=== PATIENT | female | born 1950 | race African-American/Black ===

== ENCOUNTER 2019-06-02 10:15 | Emergency (ER) | payer MEDICARE ==
--- NOTE | 2019-06-02 10:59 | ER Document Report ---
ED Medical Screen (RME) - General Chief Complaint: Altered Mental Status Stated Complaint: HEADACHE,LEFT HAND TINGLING Time Seen by Provider: 06/02/19 10:51 Primary Care Provider: CORNELL ALFONSO MD [Primary Care Provider] - Follow up as needed Mode of Arrival: Wheelchair Information source: Patient, Friend Notes: Patient presents emergency department with possible stroke. Reports last night around 5:00 PM she was cooking and she passed out. She is not sure how long she was out. She is not sure if she hit her head. She reports some right-sided neck muscular pain. She reports her hand is numb and tingling not cooperating with her. Patient speaking in clear voice smiling laughing no distress. Denies chest pain vomiting fever. Reports history of stroke in the past. Is not taking any type of anticoagulants I have greeted and performed a rapid initial assessment of this patient. A comprehensive ED assessment and evaluation of the patient, analysis of test results and completion of the medical decision making process will be conducted by additional ED providers. Dictation of this chart was performed using voice recognition software; therefo re, there may be some unintended grammatical errors. TRAVEL OUTSIDE OF THE [place] IN LAST 30 DAYS: No - Related Data Allergies/Adverse Reactions: No Known Allergies Allergy (Unverified 06/02/19 10:17) Past Medical History - Social History Frequency of alcohol use: None Drug Abuse: None Renal/ Medical History: Denies: Hx Peritoneal Dialysis Physical Exam - Vital signs Vitals: Temp Pulse Resp BP Pulse Ox 97.3 F 77 20 144/80 H 98 06/02/19 10:06/02/19 10:06/02/19 10:06/02/19 10:28 06/02/19 10:28 Course - Vital Signs Vital signs: Temp Pulse Resp BP Pulse Ox 97.3 F 77 20 144/80 H 98 06/02/19 10:06/02/19 10:06/02/19 10:06/02/19 10:28 06/02/19 10:28 Doctor's Discharge - Discharge Referrals: CORNELL ALFONSO MD [Primary Care Provider] - Follow up as needed
--- NOTE | 2019-06-02 11:28 | RADIOLOGY REPORT (SQ) ---
EXAM DESCRIPTION: CT HEAD WITHOUT COMPLETED DATE/TIME: 06/02/2019 11:12 am REASON FOR STUDY: syncope, left hand numb, diff moving COMPARISON: None. TECHNIQUE: Axial images acquired through the brain without intravenous contrast. Images reviewed wi th bone, brain and subdural windows. Additional sagittal and coronal reconstructions were generated. Images stored on PACS. All CT scanners at this facility use dose modulation, iterative reconstruction, and/or weight based d osing when appropriate to reduce radiation dose to as low as reasonably achievable (ALARA). [facility]: Dose Right [facility]: CareDose [facility]: Dose Right [facility]: Teradose 4D [facility]: [employer] RADIATION DOSE: CT Rad equipment meets quality standard of care and radiation dose reduction techniq ues were employed. CTDIvol: 53.2 mGy. DLP: 1044 mGy-cm. mGy. LIMITATIONS: None. FINDINGS: VENTRICLES: Prominent. CEREBRUM: No masses. No hemorrhage. No midline shift. Areas of low density in the white matter mos t likely due to chronic micro-vascular ischemic change. No evidence for acute infarction. CEREBELLUM: No masses. No hemorrhage. No alteration of density. No evidence for acute infarction. EXTRAAXIAL SPACES: Mild age-related involutional change. No fluid collections. No masses. ORBITS AND GLOBE: No intra- or extraconal masses. Normal contour of globe without masses. CALVARIUM: No fracture. PARANASAL SINUSES: No fluid or mucosal thickening. SOFT TISSUES: No mass or hematoma. OTHER: No other significant finding. IMPRESSION: MILD CHRONIC CHANGES OF ATROPHY AND MICROVASCULAR ISCHEMIA. NO ACUTE PROCESS. EVIDENCE OF ACUTE STROKE: NO. TECHNICAL DOCUMENTATION: JOB ID: [id number] Quality ID # 436: Final reports with documentation of one or more dose reduction techniques (e.g., Au tomated exposure control, adjustment of the mA and/or kV according to patient size, use of iterative reconstruction technique) 2010 [employer]- All Rights Reserved Reading location - IP/workstation name: [email or web address]
[2019-06-02 11:45] LABS: ABSOLUTE EOSINOPHILS # (AUTO) 0.1 10^3/uL (0.0-0.6); ABSOLUTE LYMPHOCYTES (AUTO) 1.6 10^3/uL (0.5-4.7); ABSOLUTE MONOCYTES (AUTO) 0.8 10^3/uL (0.1-1.4); ABSOLUTE NEUT (AUTO) 6.9 10^3/uL (1.7-8.2); BASOPHILS % (AUTO) 0.5 % (0-2); EOSINOPHILS % (AUTO) 1.5 % (0-6); HEMATOCRIT 42.7 % (36.0-47.0); HEMOGLOBIN 14.4 g/dL (12.0-15.5); LYMPHOCYTES % (AUTO) 17.2 % (13-45); MEAN CORPUSCULAR HEMOGLOBIN 31.8 pg (27.0-33.4); MEAN CORPUSCULAR HGB CONC 33.8 g/dL (32.0-36.0); MEAN CORPUSCULAR VOLUME 94 fl (80-97); MONOCYTES % (AUTO) 8.6 % (3-13); PLATELET COUNT 261 10^3/uL (150-450); RED BLOOD COUNT 4.54 10^6/uL (3.72-5.28); RED CELL DISTRIBUTION WIDTH 14.7 % (11.5-14.0); SEGMENTED NEUTROPHILS % (AUTO) 72.2 % (42-78); TOTAL CELLS COUNTED % (AUTO) 100 %; WHITE BLOOD COUNT 9.5 10^3/uL (4.0-10.5)
[2019-06-02 11:49] LABS: INTERNATIONAL RATION (INR) 1.03
[2019-06-02 11:50] LABS: PARTIAL THROMBOPLASTIN TIME 27.7 SEC (23.5-35.8)
--- NOTE | 2019-06-02 11:50 | RADIOLOGY REPORT (SQ) ---
EXAM DESCRIPTION: CHEST SINGLE VIEW COMPLETED DATE/TIME: 06/02/2019 11:30 am REASON FOR STUDY: syncope, left hand numb, diff moving COMPARISON: 03/28/2016 EXAM PARAMETERS: NUMBER OF VIEWS: One view. TECHNIQUE: Single frontal radiographic view of the chest acquired. RADIATION DOSE: NA LIMITATIONS: None. FINDINGS: LUNGS AND PLEURA: No opacities, masses or pneumothorax. No pleural effusion. MEDIASTINUM AND HILAR STRUCTURES: No masses. Contour normal. HEART AND VASCULAR STRUCTURES: Heart normal in size. Normal vasculature. BONES: No acute findings. HARDWARE: None in the chest. OTHER: No other significant finding. IMPRESSION: NO ACUTE RADIOGRAPHIC FINDING IN THE CHEST. TECHNICAL DOCUMENTATION: JOB ID: [id number] [employer]- All Rights Reserved Reading location - IP/workstation name: [email or web address]
[2019-06-02 11:53] LABS: PROTHROMBIN TIME 13.6 SEC (11.4-15.4)
[2019-06-02 12:25] LABS: CREATINE KINASE MB 0.49 ng/mL (<4.55)
[2019-06-02 12:30] LABS: TROPONIN I < 0.012 ng/mL
[2019-06-02 12:45] LABS: ALANINE AMINOTRANSFERASE 19 U/L (9-52); ALBUMIN 4.2 g/dL (3.5-5.0); ALKALINE PHOSPHATASE 124 U/L (38-126); ANION GAP 8 (5-19); ASPARTATE AMINO TRANSFERASE 27 U/L (14-36); BILIRUBIN,DIRECT 0.2 mg/dL (0.0-0.4); BILIRUBIN,TOTAL 0.7 mg/dL (0.2-1.3); BLOOD UREA NITROGEN 17 mg/dL (7-20); CALCIUM 9.6 mg/dL (8.4-10.2); CARBON DIOXIDE 26 mmol/L (22-30); CHLORIDE 107 mmol/L (98-107); CREATINE KINASE 63 U/L (30-135); GLUCOSE 101 mg/dL (75-110); POTASSIUM 4.7 mmol/L (3.6-5.0); SODIUM 141.4 mmol/L (137-145); TOTAL PROTEIN 8.3 g/dL (6.3-8.2)
--- NOTE | 2019-06-02 18:38 | ER Document Report ---
ED General - General Chief Complaint: Altered Mental Status Stated Complaint: HEADACHE,LEFT HAND TINGLING Time Seen by Provider: 06/02/19 10:51 Primary Care Provider: CORNELL ALFONSO MD [ACTIVE STAFF] - Follow up as needed Mode of Arrival: Wheelchair TRAVEL OUTSIDE OF THE [place] IN LAST 30 DAYS: No - HPI Notes: Patient is a 68-year-old female who presents to the emergency department for evaluation. She states that last evening at about 5 PM she was cooking in her home. She had finished cooking, then woke up on the floor. She states she had no prodromal symptoms. She states it took some time to get off the floor, and "get herself straight." She states she cleaned up the rest of her kitchen and went to sleep. She woke up at 4 this morning thinking that things had return to normal. She had multiple episodes during the day, however, where she felt as if she was going to pass out again. She went to a neighbor's house, and her neighbor reports that she was having word finding difficulties. They suggested she go to the emergency department. The patient complains of an aching pain in the base of her neck. She also noted that she was having difficulty moving her left hand. Her pain is a 1 out of 5, she describes it as a small ache. Nothing seems to make it better or worse. - Related Data Allergies/Adverse Reactions: No Known Allergies Allergy (Verified 06/02/19 19:00) Home Medications: None Past Medical History - General Information source: Patient, Friend - Social History Smoking Status: Former Smoker Frequency of alcohol use: None Drug Abuse: None Family History: Reviewed & Not Pertinent Patient has suicidal ideation: No Patient has homicidal ideation: No Neurological Medical History: Reports: Hx Cerebrovascular Accident - Patient unsure if she had a stroke or mini stroke Renal/ Medical History: Denies: Hx Peritoneal Dialysis Review of Systems - Review of Systems Constitutional: No symptoms reported EENT: No symptoms reported Cardiovascular: See HPI Respiratory: No symptoms reported Gastrointestinal: No symptoms reported Genitourinary: No symptoms reported Musculoskeletal: See HPI Skin: No symptoms reported Neurological/Psychological: See HPI Physical Exam - Vital signs Vitals: Temp Pulse Resp BP Pulse Ox 97.3 F 77 20 144/80 H 98 06/02/19 10:28 06/02/19 10:28 06/02/19 10:28 06/02/19 10:28 06/02/19 10:28 - Notes Notes: Vital signs reviewed, please refer to chart. Head is normocephalic, atraumatic. Pupils equal round, reactive to light. Neck is supple without meningismus. Heart is regular rate and rhythm. Lungs are clear to auscultation bilaterally. Abdomen is soft, nontender, normoactive bowel sounds throughout. Extremities without cyanosis, clubbing. Posterior calves are nontender. Peripheral pulses are equal. Skin is warm and dry. Patient is awake, alert, oriented x3. Cranial nerves II - XII are grossly intact without focal neurological deficits. Strength is plus 5 out of 5 throughout the right upper extremity. Patient does have a mild pronator drift on the left. 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 Strength is plus 5 out of 5 in extension of the bilateral lower extremities, but appears to be diminished in flexion bilaterally. Sensation is intact to bilateral lower extremities. Patient struggles with rapid alternating movements on the left upper extremity, as well as [id number]. Course - Re-evaluation Re-evalutation: 06/02/19 18:38 Patient presents emerged department for evaluation. Laboratory investigations and initial evaluations were as ordered through triage. Patient is a difficult historian, she really cannot tell me about the situation regarding her prior CVA, any medications that she should be taking, or was taking. I spoke with her daughter who is unfortunately away from the house, and does not currently have information with her either. Patient did not undergo CT scan of the neck, despite her neck pain, so this was ordered as well. We will continue to follow. 06/02/19 20:17 CT scan failed to reveal anything beyond degenerative changes. I am concerned about this patient. She did have a full-blown syncopal episode. She lives by herself. She is not a great historian. I did give her aspirin. Her orthostatic vital signs were positive, her blood pressure went from the 150s to the 120s. I did order IV fluids. She did not want to stay for those either. The patient is not interested in staying the hospital. I told her that I did have a concern for possible arrhythmia that could have contributed to her possible TIA versus CVA, and does put her at risk for sudden cardiac , more significant CVA. She voiced understanding to this and still wants to be discharged. She states that she had gone by her primary care physician's office and there was no one there. She believes he is retiring. I will go ahead and put the name of our on-call physician in her paperwork, but I also explained to her that this makes her discharge even more dangerous. She voiced understanding. She states her daughter is coming into town tomorrow and she still wants to go home. She is told that she can return at anytime she changes her mind, or certainly if she develops worsening. - Vital Signs Vital signs: Temp Pulse Resp BP Pulse Ox 98.1 F 72 14 146/98 H 96 06/02/19 19:34 06/02/19 19:34 06/02/19 19:34 06/02/19 20:18 06/02/19 19:34 - Laboratory Result Diagrams: 06/02/19 11:40 06/02/19 11:40 Laboratory results interpreted by me: 06/02/19 06/02/19 11:40 11:40 RDW 14.7 H Est GFR (Non-Af Amer) 57 L Total Protein 8.3 H - Diagnostic Test Radiology reviewed: Reports reviewed Radiology results interpreted by me: 06/02/19 20:22 Chest X-Ray 06/02/19 10:56 IMPRESSION: NO ACUTE RADIOGRAPHIC FINDING IN THE CHEST. Head CT 06/02/19 10:56 IMPRESSION: MILD CHRONIC CHANGES OF ATROPHY AND MICROVASCULAR ISCHEMIA. NO ACUTE PROCESS. EVIDENCE OF ACUTE STROKE: NO. Cervical Spine CT 06/02/19 18:31 IMPRESSION: CHRONIC DEGENERATIVE CHANGES. NO ACUTE FINDINGS. - EKG Interpretation by Me Additional EKG results interpreted by me: 06/02/19 18:39 Sinus mechanism with a rate of 73 bpm. PVC noted. Normal axis and intervals, nonspecific ST changes, but no acute changes concerning for ischemia or infarction. Discharge - Discharge Clinical Impression: Syncope and collapse, TIA (transient ischemic attack), Orthostatic hypotension Condition: Stable Disposition: AGAINST MEDICAL ADVICE Instructions: Orthostatic Hypotension ([facility]), Syncopal Episode ([facility]), Transient Ischemic Attack ([facility]) Additional Instructions: You have elected to leave AGAINST MEDICAL ADVICE. You have elected not to stay to receive IV fluids to help with your blood pressure drops. I explained to the risk associated with this, including arrhythmia, stroke, or even . Follow- up with primary care as soon as possible. If you change your mind regarding this at any time, you can return immediately to the emergency department for reevaluation. Referrals: CORNELL ALFONSO MD [ACTIVE STAFF] - Follow up as needed
--- NOTE | 2019-06-02 19:04 | RADIOLOGY REPORT (SQ) ---
EXAM DESCRIPTION: CT CERVICAL SPINE WITHOUT COMPLETED DATE/TIME: 06/02/2019 6:49 pm REASON FOR STUDY: syncope, neck pain COMPARISON: None. TECHNIQUE: Axial images acquired through the cervical spine without intravenous contrast. Images re viewed with lung, soft tissue and bone windows. Reconstructed coronal and sagittal MPR images review ed. Images stored on PACS. All CT scanners at this facility use dose modulation, iterative reconstruction, and/or weight based d osing when appropriate to reduce radiation dose to as low as reasonably achievable (ALARA). [facility]: Dose Right [facility]: CareDose [facility]: Dose Right [facility]: Teradose 4D [facility]: [employer] RADIATION DOSE: CT Rad equipment meets quality standard of care and radiation dose reduction techniq ues were employed. CTDIvol: 21.4 mGy. DLP: 438 mGy-cm. mGy. LIMITATIONS: None. FINDINGS: ALIGNMENT: Anatomic. MINERALIZATION: Normal. VERTEBRAL BODIES: No fractures or dislocation. DISCS: Multilevel disc space narrowing with osteophytes. FACETS, LATERAL MASSES, POSTERIOR ELEMENTS: Facet arthropathy. No fractures. No dislocation. No ac ewiiaapaayp findings. HARDWARE: None in the spine. VISUALIZED RIBS: No fractures. LUNG APICES AND SOFT TISSUES: No significant or acute findings. OTHER: No other significant finding. IMPRESSION: CHRONIC DEGENERATIVE CHANGES. NO ACUTE FINDINGS. TECHNICAL DOCUMENTATION: JOB ID: [id number] Quality ID # 436: Final reports with documentation of one or more dose reduction techniques (e.g., Au tomated exposure control, adjustment of the mA and/or kV according to patient size, use of iterative reconstruction technique) 2010 [employer]- All Rights Reserved Reading location - IP/workstation name: [email or web address]
[2019-06-02] MEDS ORDERED: ASPIRIN 325 MG TABLET PO ONE (20:14)
[2019-06-02] MEDS ORDERED: NORMAL SALINE 1000 ML 1,000 ML IV ONE (20:19)
[2019-06-02 20:20] VITALS: BP 146/98
--- NOTE | 2019-06-03 18:25 | EKG REPORT ---
SEVERITY:- ABNORMAL ECG - SINUS RHYTHM VENTRICULAR PREMATURE COMPLEX CONG, CONSIDER BIATRIAL ABNORMALITIES INFERIOR INFARCT, AGE INDETERMINATE PROBABLE POSTERIOR INFARCT : Confirmed by: Jerrod Lu MD 03-Jun-2019 18:25:23
== END 2019-06-02 20:44 | disposition left against medical advice (07) ==
LOC: ER 10:15
DX: G45.9 Transient cerebral ischemic attack, unspecified (principal); I95.1 Orthostatic hypotension; I49.3 Ventricular premature depolarization; M47.9 Spondylosis, unspecified; M54.2 Cervicalgia; Z87.891 Personal history of nicotine dependence; Z53.20 Procedure and treatment not carried out because of patient's decision for unspecified reasons
CPT/HCPCS: 93005; 99285; 36415; 82553; 82962; 82550; 85025; 85610; 85730; 80053; 84484; 71045; 70450; 72125; 93010; A9270

== ENCOUNTER → 2019-06-07 | Outpatient (CLI) | payer MEDICARE ==
[2019-06-07 12:29] LABS: ABSOLUTE EOSINOPHILS # (AUTO) 0.1 10^3/uL (0.0-0.6); ABSOLUTE LYMPHOCYTES (AUTO) 1.6 10^3/uL (0.5-4.7); ABSOLUTE MONOCYTES (AUTO) 0.6 10^3/uL (0.1-1.4); ABSOLUTE NEUT (AUTO) 5.2 10^3/uL (1.7-8.2); BASOPHILS % (AUTO) 0.4 % (0-2); EOSINOPHILS % (AUTO) 1.9 % (0-6); HEMATOCRIT 40.4 % (36.0-47.0); HEMOGLOBIN 13.8 g/dL (12.0-15.5); LYMPHOCYTES % (AUTO) 21.5 % (13-45); MEAN CORPUSCULAR HEMOGLOBIN 31.8 pg (27.0-33.4); MEAN CORPUSCULAR HGB CONC 34.3 g/dL (32.0-36.0); MEAN CORPUSCULAR VOLUME 93 fl (80-97); MONOCYTES % (AUTO) 8.3 % (3-13); PLATELET COUNT 262 10^3/uL (150-450); RED BLOOD COUNT 4.35 10^6/uL (3.72-5.28); RED CELL DISTRIBUTION WIDTH 14.3 % (11.5-14.0); SEGMENTED NEUTROPHILS % (AUTO) 67.9 % (42-78); TOTAL CELLS COUNTED % (AUTO) 100 %; WHITE BLOOD COUNT 7.6 10^3/uL (4.0-10.5)
[2019-06-07 12:35] LABS: ALANINE AMINOTRANSFERASE 31 U/L (9-52); ALBUMIN 4.1 g/dL (3.5-5.0); ALKALINE PHOSPHATASE 104 U/L (38-126); ANION GAP 7 (5-19); ASPARTATE AMINO TRANSFERASE 22 U/L (14-36); BILIRUBIN,DIRECT 0.1 mg/dL (0.0-0.4); BILIRUBIN,TOTAL 0.4 mg/dL (0.2-1.3); BLOOD UREA NITROGEN 13 mg/dL (7-20); CALCIUM 9.6 mg/dL (8.4-10.2); CARBON DIOXIDE 30 mmol/L (22-30); CHLORIDE 105 mmol/L (98-107); CHOLESTEROL 219.02 mg/dL (0-200); GLUCOSE 91 mg/dL (75-110); POTASSIUM 4.9 mmol/L (3.6-5.0); SODIUM 141.7 mmol/L (137-145); TOTAL PROTEIN 7.5 g/dL (6.3-8.2); TRIGLYCERIDES 118 mg/dL (<150)
[2019-06-07 12:46] LABS: DIRECT LDL 135 mg/dL (<100)
== END ==
LOC: OD 11:37
PROVIDERS: ATTEND Family Medicine Geriatric Medicine
DX: E78.5 Hyperlipidemia, unspecified (principal); I63.9 Cerebral infarction, unspecified; E87.6 Hypokalemia; E55.9 Vitamin D deficiency, unspecified; E66.9 Obesity, unspecified; Z79.899 Other long term (current) drug therapy
CPT/HCPCS: 36415; 80053; 80061; 82306; 83735; 84443; 85025

== ENCOUNTER → 2019-08-30 | Outpatient (CLI) | payer MEDICARE ==
[2019-08-30 12:59] LABS: CHOLESTEROL 124.62 mg/dL (0-200); TRIGLYCERIDES 105 mg/dL (<150)
[2019-08-30 13:10] LABS: DIRECT LDL 72 mg/dL (<100)
== END ==
LOC: OD 11:33
PROVIDERS: ATTEND Family Medicine Geriatric Medicine
DX: E78.5 Hyperlipidemia, unspecified (principal); Z79.899 Other long term (current) drug therapy
CPT/HCPCS: 36415; 80061; 84460

== ENCOUNTER 2020-04-15 13:12 | Emergency (ER) | payer MEDICARE ==
--- NOTE | 2020-04-15 13:40 | RADIOLOGY REPORT (SQ) ---
EXAM DESCRIPTION: CT HEAD WITHOUT IMAGES COMPLETED DATE/TIME: 04/15/2020 1:24 pm REASON FOR STUDY: left side deficit COMPARISON: 06/02/2019 TECHNIQUE: Axial images acquired through the brain without intravenous contrast. Images reviewed wi th bone, brain and subdural windows. Additional sagittal and coronal reconstructions were generated. Images stored on PACS. All CT scanners at this facility use dose modulation, iterative reconstruction, and/or weight based d osing when appropriate to reduce radiation dose to as low as reasonably achievable (ALARA). [facility]: Dose Right [facility]: CareDose [facility]: Dose Right [facility]: Teradose 4D [facility]: [employer] RADIATION DOSE: mGy. LIMITATIONS: None. FINDINGS: VENTRICLES: Normal size and contour. CEREBRUM: No masses. No hemorrhage. No midline shift. No evidence for acute infarction. There appe ars to be some loss of ledbetter/ white differentiation in the distribution of the right middle cerebral a rtery. CEREBELLUM: No masses. No hemorrhage. No alteration of density. No evidence for acute infarction. EXTRAAXIAL SPACES: No fluid collections. No masses. ORBITS AND GLOBE: No intra- or extraconal masses. Normal contour of globe without masses. CALVARIUM: No fracture. PARANASAL SINUSES: No fluid or mucosal thickening. SOFT TISSUES: No mass or hematoma. OTHER: No other significant finding. IMPRESSION: Cannot exclude an acute right middle cerebral artery area infarction. EVIDENCE OF ACUTE STROKE: Yes RIGHT MCA. COMMENT: Pertinent findings on the imaging study reported as a CRITICAL RESULT to CHRISTOPHER FRAGA MD at13:34 on 04/15/2020. Category of Critical Result: Possible acute right MCA infarction. Quality ID # 436: Final reports with documentation of one or more dose reduction techniques (e.g., Au tomated exposure control, adjustment of the mA and/or kV according to patient size, use of iterative reconstruction technique) TECHNICAL DOCUMENTATION: JOB ID: [id number] 2010 [employer]- All Rights Reserved Reading location - IP/workstation name: [email or web address]
--- NOTE | 2020-04-15 13:41 | RADIOLOGY REPORT (SQ) ---
EXAM DESCRIPTION: CHEST SINGLE VIEW IMAGES COMPLETED DATE/TIME: 04/15/2020 1:30 pm REASON FOR STUDY: left side deficit COMPARISON: 06/02/2019 EXAM PARAMETERS: NUMBER OF VIEWS: One view. TECHNIQUE: Single frontal radiographic view of the chest acquired. RADIATION DOSE: NA LIMITATIONS: None. FINDINGS: LUNGS AND PLEURA: Cannot exclude 11 mm nodule in the medial right lung base. This is not appreciated on the earlier study. MEDIASTINUM AND HILAR STRUCTURES: No masses. Contour normal. HEART AND VASCULAR STRUCTURES: Heart normal in size. Normal vasculature. BONES: No acute findings. HARDWARE: None in the chest. OTHER: No other significant finding. IMPRESSION: Possible right pulmonary nodule. TECHNICAL DOCUMENTATION: JOB ID: [id number] 2010 [employer]- All Rights Reserved Reading location - IP/workstation name: [email or web address]
[2020-04-15 13:52] LABS: HEMATOCRIT 39.6 % (36.0-47.0); HEMOGLOBIN 13.8 g/dL (12.0-15.5); MEAN CORPUSCULAR HEMOGLOBIN 32.4 pg (27.0-33.4); MEAN CORPUSCULAR HGB CONC 34.8 g/dL (32.0-36.0); MEAN CORPUSCULAR VOLUME 93 fl (80-97); PLATELET COUNT 232 10^3/uL (150-450); RED BLOOD COUNT 4.25 10^6/uL (3.72-5.28); RED CELL DISTRIBUTION WIDTH 14.1 % (11.5-14.0); WHITE BLOOD COUNT 17.9 10^3/uL (4.0-10.5)
[2020-04-15 13:53] LABS: INTERNATIONAL RATION (INR) 1.08
[2020-04-15 13:54] LABS: PARTIAL THROMBOPLASTIN TIME 26.8 SEC (23.5-35.8)
[2020-04-15] MEDS ORDERED: NORMAL SALINE 500 ML IV ONE (14:07)
[2020-04-15 14:10] LABS: ABSOLUTE LYMPHOCYTES# (MANUAL) 0.9 10^3/uL (0.5-4.7); ABSOLUTE MONOCYTES # (MANUAL) 1.3 10^3/uL (0.1-1.4); BAND NEUTROPHILS % (MANUAL) 1 % (3-5); BASOPHILS % (MANUAL) 0 % (0-2); EOSINOPHILS % (MANUAL) 0 % (0-6); LYMPHOCYTES % (MANUAL) 5 % (13-45); MONOCYTES % (MANUAL) 7 % (3-13); SEGMENTED NEUTROPHILS % (MAN) 87 % (42-78); TOTAL CELLS COUNTED 100
[2020-04-15 14:11] LABS: ANISOCYTOSIS SLIGHT; OVALOCYTES SLIGHT; PLATELET CLUMPS PRESENT; POIKILOCYTOSIS SLIGHT; TOXIC VACUOLATION PRESENT
[2020-04-15 14:12] LABS: PLATELET COMMENT ADEQUATE
[2020-04-15 14:24] LABS: ALBUMIN 4.4 g/dL (3.5-5.0); ALKALINE PHOSPHATASE 92 U/L (38-126); ANION GAP 12 (5-19); ASPARTATE AMINO TRANSFERASE 24 U/L (14-36); BILIRUBIN,TOTAL 0.5 mg/dL (0.2-1.3); BLOOD UREA NITROGEN 20 mg/dL (7-20); CALCIUM 9.7 mg/dL (8.4-10.2); CARBON DIOXIDE 21 mmol/L (22-30); CHLORIDE 105 mmol/L (98-107); CREATINE KINASE 128 U/L (30-135); GLUCOSE 163 mg/dL (75-110); POTASSIUM 3.8 mmol/L (3.6-5.0); TOTAL PROTEIN 7.7 g/dL (6.3-8.2)
[2020-04-15 14:35] LABS: CREATINE KINASE MB 2.34 ng/mL (<4.55)
[2020-04-15 14:38] LABS: TROPONIN I 0.304 ng/mL
--- NOTE | 2020-04-15 14:46 | RADIOLOGY REPORT (SQ) ---
EXAM DESCRIPTION: CTA HEAD IMAGES COMPLETED DATE/TIME: 04/15/2020 2:32 pm REASON FOR STUDY: CVA COMPARISON: None. TECHNIQUE: Post IV contrast scanning, thin section axial imaging through the brain to evaluate the a rterial structures. Source and MIP images are saved and reviewed on PACS. Advanced 3D imaging as volume-rendering, MIPs, SSD performed? yes All CT scanners at this facility use dose modulation, iterative reconstruction, and/or weight based d osing when appropriate to reduce radiation dose to as low as reasonably achievable (ALARA). [facility]: Dose Right [facility]: CareDose [facility]: Dose Right [facility]: Teradose 4D [facility]: [employer] CONTRAST TYPE AND DOSE: contrast/concentration: Isovue 350.00 mg/ml; Total Contrast Delivered: 70.0 ml; Total Saline Delivered: 47.4 ml RENAL FUNCTION: None available. LIMITATIONS: None. FINDINGS: TLINGIT & HA[place] OF [place]: The anterior, middle, posterior cerebral arteries are all patent. No ev idence of aneurysm or focal stenosis. POSTERIOR CIRCULATION: The distal vertebral arteries are patent as is the basilar artery. No aneurysm . BRAIN: No gross enhancing lesions as visualized. BONES: Intact as visualized. SINUSES: No fluid or mucosal thickening. OTHER: No other significant finding. IMPRESSION: NO CTA EVIDENCE OF STENOSIS OR ANEURYSM OF THE TLINGIT & HAIDA OF [place]. TECHNICAL DOCUMENTATION: JOB ID: [id number] Quality ID # 436: Final reports with documentation of one or more dose reduction techniques (e.g., Au tomated exposure control, adjustment of the mA and/or kV according to patient size, use of iterative reconstruction technique) 2010 [employer]- All Rights Reserved Reading location - IP/workstation name: [email or web address]
--- NOTE | 2020-04-15 14:48 | RADIOLOGY REPORT (SQ) ---
EXAM DESCRIPTION: CTA NECK IMAGES COMPLETED DATE/TIME: 04/15/2020 2:33 pm REASON FOR STUDY: cva COMPARISON: None. TECHNIQUE: Axial dynamic scanning technique with dynamic contrast enhancement through the extra-electromagnet crane operator nial carotid and vertebral arteries. Multiplanar reconstruction. 3-D MIPS and Volume-rendered imag es acquired at the workstation and saved to PACS. Images are reviewed in soft tissue, bone, lung w indows. All CT scanners at this facility use dose modulation, iterative reconstruction, and/or weight based d osing when appropriate to reduce radiation dose to as low as reasonably achievable (ALARA). [facility]: Dose Right [facility]: CareDose [facility]: Dose Right [facility]: Teradose 4D [facility]: [email or web address] CONTRAST TYPE AND DOSE: 70 mL Omnipaque 350- low osmolar. RENAL FUNCTION: None available. LIMITATIONS: None. FINDINGS: AORTIC ARCH: Normal three-vessel origin. Bilateral subclavian arteries are patent. No d issection. RIGHT CAROTIDS: Patent common, internal and external carotid arteries without suggestion of significa nt stenosis or irregular plaque. No dissection. RIGHT VERTEBRAL: Patent. No dissection. LEFT CAROTIDS: Patent common, internal and external carotid arteries without suggestion of significan t stenosis or irregular plaque. No dissection. LEFT VERTEBRAL: Patent. No dissection. OTHER: No other significant finding. OTHER: 3-D reconstructions confirm findings. IMPRESSION: NORMAL CTA OF THE EXTRA-CRANIAL CAROTID AND VERTEBRAL ARTERIES. COMMENT: Quality ID #[id number]: Measurements of distal internal carotid diameter were used as the denomina tor for stenosis measurement. TECHNICAL DOCUMENTATION: JOB ID: [id number] Quality ID # 436: Final reports with documentation of one or more dose reduction techniques (e.g., Au tomated exposure control, adjustment of the mA and/or kV according to patient size, use of iterative reconstruction technique) 2010 [email or web address]- All Rights Reserved Reading location - IP/workstation name: [email or web address]
--- NOTE | 2020-04-15 18:52 | EKG REPORT ---
SEVERITY:- ABNORMAL ECG - SINUS TACHYCARDIA MULTIPLE VENTRICULAR PREMATURE COMPLEXES RIGHT ATRIAL ABNORMALITY INFERIOR INFARCT, AGE INDETERMINATE CONSIDER POSTERIOR WALL INVOLVEMENT REPOL ABNRM SUGGESTS ISCHEMIA, DIFFUSE LEADS : Confirmed by: Jerrod Lu MD 15-Apr-2020 18:51:45
[2020-04-15] MEDS ORDERED: HYDRALAZINE HCL INJ/PF 20 MG/1 ML SDV IV ONE (20:25)
[2020-04-15 20:44] LABS: APPEARANCE,URINE CLEAR; BILIRUBIN,URINE NEGATIVE (NEGATIVE); COLOR,URINE YELLOW; GLUCOSE, URINE NEGATIVE (NEGATIVE); KETONES,URINE NEGATIVE (NEGATIVE); LEUKOCYTE ESTERASE,URINE NEGATIVE (NEGATIVE); NITRITE,URINE NEGATIVE (NEGATIVE); PROTEIN,URINE NEGATIVE (NEGATIVE); UROBILINOGEN,URINE NEGATIVE mg/dL (<2.0)
--- NOTE | 2020-04-15 20:58 | EKG REPORT ---
SEVERITY:- ABNORMAL ECG - SINUS TACHYCARDIA RIGHT ATRIAL ABNORMALITY OLD INFERIOR INFARCT, SINCE 06/02/19. CONSIDER POSTERIOR INFARCT NONSPECIFIC ST-T CHANGES- LATERAL LEADS . : Confirmed by: Jerrod Lu MD 15-Apr-2020 20:57:41
--- NOTE | 2020-04-15 21:23 | ER Document Report ---
Entered by ADAM RENDON SCRIBE 04/15/20 6799 Acting as scribe for:CHRISTOPHER FRAGA MD ED Neuro Symptoms/Deficit - General Chief Complaint: S/S of Possible Stroke Stated Complaint: POSSIBLE STROKE Primary Care Provider: JOSE ACKREMAN MD [Primary Care Provider] - Follow up as needed Mode of Arrival: Medic Information source: Friend, Emergency Med Personnel Cannot obtain history due to: Altered mental status Notes: This 69 year old female patient presents to the emergency department today via EMS after being found laying down on her front porch by her neighbors. There is no last known well as the patient's daughter and have not seen or talked to her in several days per phone calls with them with the nurse. Patient is unab le to provide any meaningful history. TRAVEL OUTSIDE OF THE [place] IN LAST 30 DAYS: No - Related Data Allergies/Adverse Reactions: No Known Allergies Allergy (Verified 04/15/20 17:02) Past Medical History - General Information source: [facility] Records Cannot obtain history due to: Altered mental status - Social History Smoking Status: Unknown if Ever Smoked Family History: Reviewed & Not Pertinent - Past Medical History Cardiac Medical History: Reports: Hx Hypercholesterolemia Neurological Medical History: Reports: Hx Cerebrovascular Accident - TIA 2019 Surgical Hx: Negative Review of Systems - Review of Systems -: Yes ROS unobtainable due to patient's medical condition Course - Re-evaluation Re-evalutation: 04/15/20 15:04 Spoke to Neuro at [facility]. Says he has no real reasons to accept her because there are no interventions. Recommends sending to [facility]. 04/15/20 21:09 Update on patient's transfer. Patient is to be transferred to [facility] in [place], and has been accepted in pending bed placement at this time. 04/15/20 21:11 Inasmuch as patient was met on arrival and taken straight to the CT scan after evaluation by me. Patient has suffered a acute CVA of the right middle cerebral artery territory. However there was no well known downtime as patient was found in this condition lying on the ground her at her residence. So there was no witnesses prior to her neighbors finding her in this condition. Therefore patient did not meet criteria for any acute intervention with thrombolytics. - Vital Signs Vital signs: 04/15/20 21:10 Vital signs stable. - Laboratory Result Diagrams: 04/15/20 13:35 04/15/20 13:35 Laboratory results interpreted by me: 04/15/20 21:18 Patient second troponin level was 0.7, consistent with an evolving acute myocardial infarction. - Diagnostic Test Radiology reviewed: Image reviewed, Reports reviewed Radiology results interpreted by me: 04/15/20 21:14 Chest x-ray shows no acute process except there is a small right lobe nodule present. CT scan of head shows a right middle cerebral artery territory infarct. Consistent with acute stroke. 04/15/20 21:14 CT angiogram of brain shows patent vessels including [place] of [place]. CT angiogram of neck shows patent vessels no thrombosis noted. - EKG Interpretation by Me Additional EKG results interpreted by me: 04/15/20 21:17 Twelve-lead EKG shows sinus tachycardia with occasional PVCs. Old inferior FL and a posterior infarct 04/15/20 21:17 Second twelve-lead EKG shows sinus tachycardia right atrial abnormality probable inferior infarct age indeterminate concerning posterior infarct. Critical Care Note - Critical Care Note Total time excluding time spent on procedures (mins): 55 - Evaluation of patient on arrival with acute CVA presentation with left hemiparesis. Management of stroke work-up including CTA scans with repeat CT angiograms of head and neck. Also management of patient with blood pressure mildly elevated and an evolving FL. Discussing patient with [facility] in [place] for transferring and discussion of determination of patient's options for thrombolytics. It was determined the patient had no well-known downtime so therefore thrombolytics was not given. ED NIH Stroke Scale - NIH Stroke Scale *: 1. NIH scale should be completed with appropriate accompanying assessment tools. *: 2. The NIH should reflect what the patient is capable of doing and should not be coached by the clinician. 1a. Level of Consciousness: 0=Alert;keenly responsive -: 1=Drowsy -: 2=Obtunded -: 3=Coma/unresponsive or reflex to noxious stimuli. 1a. Responses: 2 1b. Orientation Questions: a. What month is it? -: b. How old are you? -: 0=Answers both questions correctly. -: 1=Answers one question correctly or patient is intubated or has orotracheal trauma. -: 2=Answers neither question correctly. 1b. Responses: 2 1c. Response to commands: a. Open and close eyes? -: b. Cardiovascular Invasive Specialist and release hand? -: Credit is given despite weakness. Demonstration of task is permitted. Substitute command if hands cannot be used. -: 0=Performs both tasks correctly -: 1=Performs one task correctly -: 2=Performs neither task correctly 2. Gaze: Establish eye contact and instruct patient to "Follow my finger" -: 0=Normal -: 1=Partial gaze palsy. Gaze is abnormal in one or both eyes, but where forced deviation or total gaze paresis is not present. -: 2=Forced deviation or total gaze paresis. 3. Visual Gayle: Sees fingers in all four quadrants. -: 0=No visual loss. -: 1=Partial hemianopsia. -: 2=Complete hemianopsia. -: 3=Bilateral hemianopsia (including Cortical blindness) 4. Facial Movement: Instruct patient to: -: a. Show me your teeth -: b. Raise your eyebrows -: c. Close your eyes -: d. Smile -: 0=Normal symmetrical movement -: 1=Minor paralysis (flattened nasolabial fold, asymmetry on smiling). -: 2=Partial paralysis (total or near total paralysis of lower face). -: 3=Complete paralysis of upper and lower face 4. Responses: 2 5. Motor functions (left arm): Alternate sides and extend each arm with palms down (90 degrees if sitting or 45 degrees for supine). -: 0=No drift;limb holds for full 10 seconds. -: 1=Drift; limb holds but drifts down before full 10 seconds, but does not hit bed. -: 2=Some effort against gravity; limb cannot get to or maintain position. -: 3=No effort against gravity; limb falls. -: 4=No movement. -: UN=Amputation, joint fusion, explain in comments. 5. Responses (left arm): 4 5. Motor Functions (right arm): Alternate sides and extend each arm with palms down (90 degrees if sitting or 45 degrees for supine). -: 0=No drift;limb holds for full 10 seconds. -: 1=Drift; limb holds but drifts down before full 10 seconds, but does not hit bed. -: 2=Some effort against gravity; limb cannot get to or maintain position. -: 3=No effort against gravity; limb falls. -: 4=No movement. -: UN=Amputation, joint fusion, explain in comments. 5. Responses (right arm): 1 6. Motor Functions (left leg): With patient lying supine, alternate sides and extend each leg (30 degrees always while supine). -: 0=No drift, leg holds position for full 5 seconds -: 1=Drift; leg falls before full 5 seconds but does not hit bed. -: 2=Some effort against gravity, leg falls to bed but some effort against gravity. -: 3=No effort against gravity, leg falls to bed immediately. -: 4=No movement. -: UN=Amputation, joint fusion; explain in comments. 6. Responses (left leg): 4 6. Motor Functions (right leg): With patient lying supine, alternate sides and extend each leg (30 degrees always while supine). -: 0=No drift, leg holds position for full 5 seconds -: 1=Drift; leg falls before full 5 seconds but does not hit bed. -: 2=Some effort against gravity, leg falls to bed but some effort against gravity. -: 3=No effort against gravity, leg falls to bed immediately. -: 4=No movement. -: UN=Amputation, joint fusion; explain in comments. 6. Responses (right leg): 1 7. Limb Ataxia: With eyes open instruct patient to: -: a. "Touch your finger to your nose". -: b. "Touch your heel to your [place]" -: 0=Absent -: 1=Present in one limb. -: 2=Present in two limbs. -: UN=Amputation or joint fusion; explain in comments. 7. Responses: 0 8. Sensory: Test sensation using pinprick or noxious stimuli. Test as many body parts as possible. -: 0=Normal;no sensory loss -: 1=Mile to moderate sensory loss (patient feels pin prick but is less sharp on affected side). -: 2=Severe or total sensory loss. 9. Best Language: Instruct patient to: -: a. "Describe what you see in this picture." -: b. "Name the items in this picture." -: c. "Read these sentences." -: 0=No aphasia, normal -: 1=Mild to moderate aphasia. -: 2=Severe aphasia -: 3=Mute, global aphasia, no usable speech or auditory comprehension. 9. Responses: 3 10. Articulation, Dysarthia: Instruct patient to: -: "Read these words" or "Repeat these words" -: 0=Normal -: 1=Mild to moderate; patient may slur some words but can be understood without difficulty. -: 2=Severe; patients speech so slurred as to be unintelligible in the absence of dysphasia. -: UN=Intubated or other physical barrier, explain in comments. 10. Responses: 2 11. Extinction or inattention: 0=No abnormality -: 1= Visual, tactile, auditory, spatial, or personal inattention or extinction to bilateral simulation in one or the sensory modalities. -: 2=Profound beena-inattention or beena-inattention to more than one modality; does not recognize own hand. 11. Responses: 2 Total Score: 23 Discharge - Discharge Clinical Impression: Acute ischemic cerebrovascular accident (CVA) involving right middle cerebral artery territory, Non-ST elevated myocardial infarction (non-STEMI) Condition: Critical Disposition: [facility] Referrals: JOSE ACKERMAN MD [Primary Care Provider] - Follow up as needed I personally performed the services described in the documentation, reviewed and edited the documentation which was dictated to the scribe in my presence, and it accurately records my words and actions.
[2020-04-16 09:22] VITALS: BP 151/73
== END 2020-04-16 09:29 | disposition short-term general hospital (02) ==
LOC: ER 13:12
DX: I63.511 Cerebral infarction due to unspecified occlusion or stenosis of right middle cerebral artery (principal); G81.94 Hemiplegia, unspecified affecting left nondominant side; R29.723 NIHSS score 23; I21.4 Non-ST elevation (NSTEMI) myocardial infarction; R00.0 Tachycardia, unspecified; I49.3 Ventricular premature depolarization; R91.1 Solitary pulmonary nodule
CPT/HCPCS: 93005; 99291; 96360; 96361; 36415; 82553; 82962; 82550; 85025; 85610; 85730; 80053; 81001; 84484; 71045; 70450; 70496; 70498; 93010; J7040

== ENCOUNTER 2020-07-13 17:39 | Inpatient (IN) | payer MEDICARE ==
[2020-07-13] MEDS ORDERED: NORMAL SALINE 500 ML IV ONE (18:22)
--- NOTE | 2020-07-13 18:24 | ER Document Report ---
Entered by ADAM RENDON SCRIBE 07/13/20 1813 Acting as scribe for:DON SUTTON, ED General - General Chief Complaint: Abnormal Lab Results Stated Complaint: ABNORMAL LABS Time Seen by Provider: 07/13/20 17:47 Primary Care Provider: BABAK PATTON MD [Primary Care Provider] - Follow up as needed Mode of Arrival: Medic Information source: Emergency Med Personnel, Outside Facility Records Notes: This 69 year old bedridden female patient presents to the emergency department today with complaints of a potassium of 3.0 today during routine labs at her living facility ([facility]). senior living also told EMS she has been "rapidly declining". She is reported to be a DNR but did not come with her DNR paperwork per nursing notes. Patient is unable to provide any meaningful history. TRAVEL OUTSIDE OF THE [place] IN LAST 30 DAYS: No - Related Data Allergies/Adverse Reactions: No Known Allergies Allergy (Verified 04/15/20 17:02) Past Medical History - General Information source: [facility] Records Cannot obtain history due to: Dementia - Social History Smoking Status: Unknown if Ever Smoked Frequency of alcohol use: None Drug Abuse: None Family History: Reviewed & Not Pertinent - Past Medical History Cardiac Medical History: Reports: Hx Hypercholesterolemia Neurological Medical History: Reports: Hx Cerebrovascular Accident - TIA 2019 Surgical Hx: Negative Review of Systems - Review of Systems -: Yes ROS unobtainable due to patient's medical condition Physical Exam - Vital signs Vitals: Resp BP Pulse Ox 15 112/71 100 07/13/20 17:57 07/13/20 17:57 07/13/20 17:57 Interpretation: Normal - Notes Notes: Physical Exam: General: Poorly responsive. HEENT: Normocephalic. Atraumatic. PERRL. Extraocular movements intact. Oropharynx clear. Poor dentition. Neck: Supple. Non-tender. Respiratory: No respiratory distress. Clear and equal breath sounds bilaterally. Cardiovascular: Regular rate and rhythm. Abdominal: Normal Inspection. Non-tender. No distension. Normal Bowel Sounds. Back: No gross abnormalities. Extremities: Moves all four extremities. Upper extremities: LUE contracted. Lower extremities: bilateral lower extremity contractures. Neurological: Cognition at baseline Skin: Warm. Dry. Normal color. - General General appearance: Appears well, Alert - HEENT Head: Normocephalic, Atraumatic Eyes: Normal Pupils: PERRL - Respiratory Respiratory status: No respiratory distress Chest status: Nontender Breath sounds: Normal Chest palpation: Normal - Cardiovascular Rhythm: Regular Heart sounds: Normal auscultation Murmur: No - Abdominal Inspection: Normal Distension: No distension Bowel sounds: Normal Tenderness: Nontender Organomegaly: No organomegaly - Back Back: Normal, Nontender - Extremities General upper extremity: Normal inspection, Nontender, Normal color, Normal ROM, Normal temperature General lower extremity: Normal inspection, Nontender, Normal color, Normal ROM, Normal temperature, Normal weight bearing. No: Bailey's sign - Neurological Neuro grossly intact: Yes Cognition: Normal Orientation: AAOx4 [place] Coma Scale Eye Opening: Spontaneous Tres Coma Scale Verbal: Oriented [place] Coma Scale Motor: Obeys Commands Tres Coma Scale Total: 15 Speech: Normal Motor strength normal: LUE, RUE, LLE, RLE Sensory: Normal - Psychological Associated symptoms: Normal affect, Normal mood - Skin Skin Temperature: Warm Skin Moisture: Dry Skin Color: Normal Course - Re-evaluation Re-evalutation: 07/13/20 20:00 MDM 69 year old female with complaints of worsening of her baseline mental status. Demented and nonverbal and nonambulatory at baseline. She can contribute no meaningful history at this time. After labs are obtained her Na is noted to be 163. - Vital Signs Vital signs: Temp Pulse Resp BP Pulse Ox 98.8 F 99 18 112/71 100 07/13/20 18:02 07/13/20 18:07 07/13/20 19:00 07/13/20 18:07 07/13/20 18:07 - Laboratory Result Diagrams: 07/13/20 18:23 07/13/20 18:23 Laboratory results interpreted by me: 07/13/20 07/13/20 07/13/20 18:23 18:23 18:59 RBC 3.65 L Hgb 11.5 L Hct 34.1 L RDW 16.6 H Plt Count 116 L Sodium 162.7 H Chloride 127 H BUN 53 H Est GFR ( Amer) 55 L Est GFR (MDRD) Non-Af 45 L AST 58 H ALT 39 H Alkaline Phosphatase 152 H Albumin 3.2 L Urine Protein 100 H Urine Ketones TRACE H Urine Bilirubin SMALL H Urine Urobilinogen 4.0 H Ur Leukocyte Esterase SMALL H - EKG Interpretation by Me EKG shows normal: Sinus rhythm Rate: Normal Rhythm: NSR - NSR Nl [place] 94 BPM Repol Ab no st elevation or depression my interpretaiton. Discharge - Discharge Clinical Impression: Hypernatremia, Thrombocytopenia Dementia Qualifiers: Dementia type: unspecified type Dementia behavioral disturbance: without behavioral disturbance Qualified Code(s): F03.90 - Unspecified dementia without behavioral disturbance Anemia Qualifiers: Anemia type: other cause Other causes of anemia: other cause, not classified Qualified Code(s): D64.89 - Other specified anemias UTI (urinary tract infection) Qualifiers: Urinary tract infection type: site unspecified Hematuria presence: with hematuria Qualified Code(s): N39.0 - Urinary tract infection, site not specified Condition: Stable Disposition: ADMITTED OBSERVATION Unit Admitted: IMCU Referrals: BABAK PATTON MD [Primary Care Provider] - Follow up as needed I personally performed the services described in the documentation, reviewed and edited the documentation which was dictated to the scribe in my presence, and it accurately records my words and actions.
[2020-07-13 18:48] LABS: ABSOLUTE BASOPHILS # (AUTO) 0.1 10^3/uL (0.0-0.2); ABSOLUTE EOSINOPHILS # (AUTO) 0.3 10^3/uL (0.0-0.6); ABSOLUTE LYMPHOCYTES (AUTO) 1.4 10^3/uL (0.5-4.7); ABSOLUTE MONOCYTES (AUTO) 1.2 10^3/uL (0.1-1.4); ABSOLUTE NEUT (AUTO) 7.4 10^3/uL (1.7-8.2); BASOPHILS % (AUTO) 0.6 % (0-2); EOSINOPHILS % (AUTO) 2.7 % (0-6); HEMATOCRIT 34.1 % (36.0-47.0); HEMOGLOBIN 11.5 g/dL (12.0-15.5); LYMPHOCYTES % (AUTO) 13.6 % (13-45); MEAN CORPUSCULAR HEMOGLOBIN 31.5 pg (27.0-33.4); MEAN CORPUSCULAR HGB CONC 33.8 g/dL (32.0-36.0); MEAN CORPUSCULAR VOLUME 93 fl (80-97); MONOCYTES % (AUTO) 11.2 % (3-13); PLATELET COUNT 116 10^3/uL (150-450); RED BLOOD COUNT 3.65 10^6/uL (3.72-5.28); RED CELL DISTRIBUTION WIDTH 16.6 % (11.5-14.0); SEGMENTED NEUTROPHILS % (AUTO) 71.9 % (42-78); TOTAL CELLS COUNTED % (AUTO) 100 %; WHITE BLOOD COUNT 10.3 10^3/uL (4.0-10.5)
[2020-07-13 18:56] LABS: ALBUMIN 3.2 g/dL (3.5-5.0); ALKALINE PHOSPHATASE 152 U/L (38-126); ANION GAP 10 (5-19); ASPARTATE AMINO TRANSFERASE 58 U/L (14-36); BILIRUBIN,DIRECT 0.4 mg/dL (0.0-0.4); BILIRUBIN,TOTAL 1.1 mg/dL (0.2-1.3); BLOOD UREA NITROGEN 53 mg/dL (7-20); CALCIUM 9.6 mg/dL (8.4-10.2); CARBON DIOXIDE 26 mmol/L (22-30); CHLORIDE 127 mmol/L (98-107); GLUCOSE 94 mg/dL (75-110); POTASSIUM 3.6 mmol/L (3.6-5.0); TOTAL PROTEIN 6.4 g/dL (6.3-8.2)
[2020-07-13 19:20] LABS: APPEARANCE,URINE SLIGHTLY-CLOUDY; BILIRUBIN,URINE SMALL (NEGATIVE); COLOR,URINE AMBER; GLUCOSE, URINE NEGATIVE (NEGATIVE); KETONES,URINE TRACE mg/dL (NEGATIVE); LEUKOCYTE ESTERASE,URINE SMALL (NEGATIVE); NITRITE,URINE NEGATIVE (NEGATIVE); PROTEIN,URINE 100 mg/dL (NEGATIVE)
[2020-07-13] MEDS ORDERED: CEFTRIAXONE 1 GM/D5W RTU 1 GM/50 ML RTUPB IV ONE (19:53)
[2020-07-13] MEDS ORDERED: RINGERS SOLUTION,LACTATED 1,000 ML IV ONE (19:55)
[2020-07-13] MEDS ORDERED: DEXTROSE 5%-WATER 1000 ML 1,000 ML IV PRN (20:24)
[2020-07-13] MEDS ORDERED: IPRATROPIUM/ALBUTEROL 0.5-2.5 MG/3 ML AMPUL NEB PRN (20:26)
[2020-07-13] MEDS ORDERED: ACETAMINOPHEN 325 MG TABLET PO PRN (20:26)
[2020-07-13] MEDS ORDERED: OXYCODONE-ACETAMINOPHEN 5-325 MG TABLET PO PRN (20:26)
[2020-07-13] MEDS ORDERED: ONDANSETRON HCL INJ/PF 4 MG/2 ML SDV IV PRN (20:26)
[2020-07-13] MEDS ORDERED: PROMETHAZINE HCL INJ 25 MG/1 ML VIAL IV PRN (20:26)
[2020-07-13] MEDS ORDERED: MAGNESIUM HYDROXIDE SUSP 30 ML UDCUP PO PRN (20:26)
--- NOTE | 2020-07-13 22:09 | PDOC H&P ---
History of Present Illness Admission Date/PCP: 07/13/20 20:18 BABAK PATTON MD History of Present Illness: VALERI VILLASEÑOR is a 69 year old female who is a resident of assisted at [facility] with past medical history of dementia, CVA, who is nonverbal and her CODE STATUS is DNR sent to ED from [facility] when she was found to have low potassium on routine lab today and as per assisted was declining rapidly. Patient is awake and alert with left upper and lower extremity c ontractures and left neck contractures follows some command but unfortunately does not verbalize, as per assisted report patient is able to eat. Patient does not seem to be in any acute distress except for profound neurological symptoms and the fact that she is not verbal and does not provide any history. In ED she was found to be severely hypernatremic, with mild leukocyte esterase on UA. Past Medical History Cardiac Medical History: Reports: Myocardial Infarction, Hyperlipidema Social History Smoking Status: Unknown if Ever Smoked Family History Family History: Reviewed & Not Pertinent Parental Family History Reviewed: Yes Children Family History Reviewed: Yes Sibling(s) Family History Reviewed.: Yes Medication/Allergy Home Medications: Acetaminophen [Pain Relief] 650 mg PO Q6HP PRN 07/13/20 Aspirin [Adult Low Dose Aspirin EC] 81 mg PO DAILY 07/13/20 Atorvastatin Calcium [Lipitor 40 mg Tablet] 40 mg PO QHS 07/13/20 Cholecalciferol (Vitamin D3) [Vitamin D3 1000 Unit Tablet] 1,000 unit PO DAILY 07/13/20 Lansoprazole [Prevacid 24Hr] 15 mg PO BID 07/13/20 Losartan Potassium [Cozaar] 25 mg PO DAILY 07/13/20 Mirtazapine [Remeron] 15 mg PO QHS 07/13/20 Multivit,Tx with Iron,Minerals [Thera-M] 1 each PO DAILY 07/13/20 Valsartan [Diovan 40 mg Tablet] 40 mg PO DAILY 07/13/20 Allergies/Adverse Reactions: No Known Allergies Allergy (Verified 04/15/20 17:02) Review of Systems ROS unobtainable: Due to mental status Physical Exam Vital Signs: Temp Pulse Resp BP Pulse Ox 98.8 F 99 18 112/71 100 07/13/20 18:02 07/13/20 18:07 07/13/20 19:00 07/13/20 18:07 07/13/20 18:07 Intake & Output 07/12/20 07/13/20 07/14/20 06:59 06:59 06:59 Intake Total 550 Balance 550 Weight 60.555 kg General appearance: PRESENT: no acute distress, well-developed, well-nourished Head exam: PRESENT: atraumatic, normocephalic Neck exam: ABSENT: carotid bruit, JVD, lymphadenopathy, thyromegaly Respiratory exam: PRESENT: clear to auscultation veronica. ABSENT: rales, rhonchi, wheezes Cardiovascular exam: PRESENT: RRR. ABSENT: diastolic murmur, rubs, systolic murmur GI/Abdominal exam: PRESENT: normal bowel sounds, soft. ABSENT: distended, guarding, mass, organolmegaly, rebound, tenderness Neurological exam: PRESENT: alert, awake, CN II-XII grossly intact - Normal by inspection. Does not follow command., other - Nonverbal. Left upper extremity contracture. Left lower extremity contracture. Left knee contracture.. ABSENT: motor sensory deficit Results Laboratory Results: 07/13/20 18:23 07/13/20 18:23 07/13/20 07/13/20 07/13/20 18:23 18:23 18:59 WBC 10.3 RBC 3.65 L Hgb 11.5 L Hct 34.1 L MCV 93 MCH 31.5 MCHC 33.8 RDW 16.6 H Plt Count 116 L Seg Neutrophils % 71.9 Sodium 162.7 H Potassium 3.6 Chloride 127 H Carbon Dioxide 26 Anion Gap 10 BUN 53 H Creatinine 1.18 Est GFR ( Amer) 55 L Glucose 94 Calcium 9.6 Magnesium 2.3 Total Bilirubin 1.1 AST 58 H Alkaline Phosphatase 152 H Total Protein 6.4 Albumin 3.2 L Urine Color MANJU Urine Appearance SLIGHTLY-CLOUDY Urine pH 5.0 Ur Specific [place] 1.030 Urine Protein 100 H Urine Glucose (UA) NEGATIVE Urine Ketones TRACE H Urine Blood NEGATIVE Urine Nitrite NEGATIVE Ur Leukocyte Esterase SMALL H Urine WBC (Auto) 23 Urine RBC (Auto) 4 Assessment and Plan - Diagnosis (1) Hypernatremia Is this a current diagnosis for this admission?: Yes Plan: Likely chronic due to low p.o. intake. Hypovolemic hypernatremia. Free water deficit 2833. Received 1 L of NS in ED. Volume resuscitation guided by volume status. D5 and water at the rate of 114 mL/h with goal of correction of 8 to 10 mEq in the next 24 hours. BMP every 6 hours. Continue fall and seizure precautions. (2) History of CVA (cerebrovascular accident) Is this a current diagnosis for this admission?: Yes Plan: No previous hospitalization here. Patient has left neck, left upper and lower extremity contractures. Continue statins, optimize BP, continue aspirin and Plavix. PT OT. (3) Dementia Qualifiers: Dementia type: vascular dementia Dementia behavioral disturbance: without behavioral disturbance Qualified Code(s): F01.50 - Vascular dementia without behavioral disturbance Is this a current diagnosis for this admission?: Yes Plan: Possibly vascular dementia. Supportive measures. (4) UTI (urinary tract infection) Qualifiers: Urinary tract infection type: acute cystitis Hematuria presence: without hematuria Qualified Code(s): N30.00 - Acute cystitis without hematuria Is this a current diagnosis for this admission?: Yes Plan: Likely cystitis, UA positive for small leukocyte esterase. Received 1 dose of IV Rocephin in ED. Continue empiric IV antibiotics. Follow- up urine culture. - Time Time Spent with patient: 35 or more minutes Medications reviewed and adjusted accordingly: Yes Anticipated Discharge [facility]position[facility] Anticipated Discharge Timeframe: within 72 hours
[2020-07-13] MEDS: HEPARIN SOD (PORCINE) 5,000 UNIT/ML 1 ML VIAL SUBCUT SCH (22:27)
[2020-07-13] MEDS ORDERED: ATORVASTATIN CALCIUM 40 MG TABLET PO ONE (22:30)
[2020-07-13] MEDS: FAMOTIDINE 20 MG TABLET PO SCH (22:31)
[2020-07-14 00:48] LABS: ANION GAP 7 (5-19); BLOOD UREA NITROGEN 48 mg/dL (7-20); CALCIUM 9.6 mg/dL (8.4-10.2); CARBON DIOXIDE 28 mmol/L (22-30); CHLORIDE 127 mmol/L (98-107); GLUCOSE 95 mg/dL (75-110); POTASSIUM 3.4 mmol/L (3.6-5.0)
[2020-07-14] MEDS ORDERED: POTASSI CL 20 MEQ/50 ML RIDER 20 MEQ/50 ML RTUPB IV ONE ×2 (02:10→05:19)
[2020-07-14 04:27] LABS: ABSOLUTE BASOPHILS # (AUTO) 0.1 10^3/uL (0.0-0.2); ABSOLUTE EOSINOPHILS # (AUTO) 0.4 10^3/uL (0.0-0.6); ABSOLUTE LYMPHOCYTES (AUTO) 1.7 10^3/uL (0.5-4.7); ABSOLUTE MONOCYTES (AUTO) 1.2 10^3/uL (0.1-1.4); ABSOLUTE NEUT (AUTO) 7.6 10^3/uL (1.7-8.2); BASOPHILS % (AUTO) 0.7 % (0-2); EOSINOPHILS % (AUTO) 3.7 % (0-6); HEMATOCRIT 36.1 % (36.0-47.0); HEMOGLOBIN 12.2 g/dL (12.0-15.5); LYMPHOCYTES % (AUTO) 15.5 % (13-45); MEAN CORPUSCULAR HEMOGLOBIN 31.9 pg (27.0-33.4); MEAN CORPUSCULAR HGB CONC 33.7 g/dL (32.0-36.0); MEAN CORPUSCULAR VOLUME 95 fl (80-97); MONOCYTES % (AUTO) 10.7 % (3-13); PLATELET COUNT 116 10^3/uL (150-450); RED BLOOD COUNT 3.81 10^6/uL (3.72-5.28); RED CELL DISTRIBUTION WIDTH 16.8 % (11.5-14.0); SEGMENTED NEUTROPHILS % (AUTO) 69.4 % (42-78); TOTAL CELLS COUNTED % (AUTO) 100 %
[2020-07-14 04:40] LABS: ALBUMIN 3.3 g/dL (3.5-5.0); ALKALINE PHOSPHATASE 144 U/L (38-126); ANION GAP 8 (5-19); ASPARTATE AMINO TRANSFERASE 34 U/L (14-36); BILIRUBIN,DIRECT 0.4 mg/dL (0.0-0.4); BLOOD UREA NITROGEN 46 mg/dL (7-20); CALCIUM 9.7 mg/dL (8.4-10.2); CARBON DIOXIDE 25 mmol/L (22-30); CHLORIDE 130 mmol/L (98-107); GLUCOSE 92 mg/dL (75-110); POTASSIUM 3.1 mmol/L (3.6-5.0); TOTAL PROTEIN 6.6 g/dL (6.3-8.2)
[2020-07-14] MEDS: HEPARIN SOD (PORCINE) 5,000 UNIT/ML 1 ML VIAL SUBCUT SCH ×3 (06:29→23:44)
--- NOTE | 2020-07-14 10:23 | EKG REPORT ---
SEVERITY:- DEFECTIVE ECG - MOST LIKELY SINUS WITH SEVERE BASELINE ARTIFACT.REPEAT EKG : Confirmed by: Di Lovett MD 14-Jul-2020 10:23:21
[2020-07-14] MEDS: MULTIVITAMIN TABLET PO SCH (11:26)
[2020-07-14] MEDS: ASPIRIN 81 MG TABLET, ENT COATED PO SCH (11:26)
[2020-07-14] MEDS: LOSARTAN POTASSIUM 25 MG TABLET PO SCH (11:26)
[2020-07-14] MEDS: DOCUSATE SODIUM 100 MG CAPSULE PO SCH (11:26)
[2020-07-14] MEDS: FAMOTIDINE 20 MG TABLET PO SCH ×2 (11:26→23:44)
[2020-07-14] MEDS: CHOLECALCIFEROL (D3) 1,000 UNIT (25 MCG) TABLET PO SCH (11:27)
[2020-07-14 13:51] LABS: ANION GAP 6 (5-19); BLOOD UREA NITROGEN 39 mg/dL (7-20); CALCIUM 9.4 mg/dL (8.4-10.2); CARBON DIOXIDE 28 mmol/L (22-30); CHLORIDE 124 mmol/L (98-107); GLUCOSE 138 mg/dL (75-110)
[2020-07-14 13:53] LABS: POTASSIUM 3.1 mmol/L (3.6-5.0)
[2020-07-14] MEDS ORDERED: DEXTROSE 40% GEL 15 GM TUBE PO PRN ×2 (15:57)
[2020-07-14] MEDS ORDERED: GLUCAGON,HUMAN RECOMB 1 MG INJ SUBCUT PRN (15:57)
[2020-07-14] MEDS ORDERED: DEXTROSE 50%-WATER 25 GM/50 ML DISP.SYRIN IV PRN ×2 (15:57)
--- NOTE | 2020-07-14 16:39 | PDOC PROGRESS REPORT ---
Subjective Progress Note for:: 07/14/20 Subjective:: The patient is in bed. She is not responding to verbal interaction. Contracted left arm. Reason For Visit: HYPERNATREMIA,DEHYDRATION Physical Exam Vital Signs: Temp Pulse Resp BP Pulse Ox 98.1 F 92 14 116/56 L 98 07/14/20 12:14 07/14/20 12:14 07/14/20 12:14 07/14/20 12:14 07/14/20 12:14 Intake & Output 07/13/20 07/14/20 07/15/20 06:59 06:59 06:59 Intake Total 1079 50 Output Total 100 Balance 979 50 Weight 59.4 kg General appearance: ABSENT: cooperative - Unable to cooperate due to mental status Head exam: PRESENT: atraumatic, normocephalic Ear exam: PRESENT: normal external ear exam. ABSENT: bleeding, drainage Mouth exam: PRESENT: dry mucosa, tongue midline Teeth exam: PRESENT: poor dentation Respiratory exam: PRESENT: clear to auscultation veronica - Anteriorly, symmetrical, unlabored. ABSENT: rales, rhonchi, tachypnea, wheezes Cardiovascular exam: PRESENT: RRR, +S1, +S2. ABSENT: bradycardia, diastolic murmur, irregular rhythm, systolic murmur, tachycardia Breast: PRESENT: Other - Asymmetry with right breast enlarged. They were using IV access and the IV could have infiltrated. No discoloration. No open lesions or drainage. No erythema. GI/Abdominal exam: PRESENT: hypoactive bowel sounds, soft. ABSENT: tenderness Rectal exam: PRESENT: deferred Gentrourinary exam: PRESENT: indwelling catheter Musculoskeletal exam: ABSENT: ambulatory Neurological exam: ABSENT: awake Psychiatric exam: PRESENT: other - Unable to assess Focused psych exam: PRESENT: other - Obtunded Results Laboratory Results: 07/14/20 03:59 07/14/20 13:17 07/13/20 07/13/20 07/13/20 18:23 18:23 18:59 WBC 10.3 RBC 3.65 L Hgb 11.5 L Hct 34.1 L MCV 93 MCH 31.5 MCHC 33.8 RDW 16.6 H Plt Count 116 L Seg Neutrophils % 71.9 Sodium 162.7 H Potassium 3.6 Chloride 127 H Carbon Dioxide 26 Anion Gap 10 BUN 53 H Creatinine 1.18 Est GFR ( Amer) 55 L Glucose 94 Calcium 9.6 Magnesium 2.3 Total Bilirubin 1.1 AST 58 H Alkaline Phosphatase 152 H Total Protein 6.4 Albumin 3.2 L Urine Color MANJU Urine Appearance SLIGHTLY-CLOUDY Urine pH 5.0 Ur Specific [place] 1.030 Urine Protein 100 H Urine Glucose (UA) NEGATIVE Urine Ketones TRACE H Urine Blood NEGATIVE Urine Nitrite NEGATIVE Ur Leukocyte Esterase SMALL H Urine WBC (Auto) 23 Urine RBC (Auto) 4 07/14/20 07/14/20 07/14/20 00:26 03:59 03:59 WBC 11.0 H RBC 3.81 Hgb 12.2 Hct 36.1 MCV 95 MCH 31.9 MCHC 33.7 RDW 16.8 H Plt Count 116 L Seg Neutrophils % 69.4 Sodium 162.2 H 163.2 H Potassium 3.4 L 3.1 L Chloride 127 H 130 H Carbon Dioxide 28 25 Anion Gap 7 8 BUN 48 H 46 H Creatinine 1.05 1.04 Est GFR ( Amer) > 60 > 60 Glucose 95 92 Calcium 9.6 9.7 Magnesium 2.3 Total Bilirubin 1.0 AST 34 Alkaline Phosphatase 144 H Total Protein 6.6 Albumin 3.3 L Urine Color Urine Appearance Urine pH Ur Specific [place] Urine Protein Urine Glucose (UA) Urine Ketones Urine Blood Urine Nitrite Ur Leukocyte Esterase Urine WBC (Auto) Urine RBC (Auto) 07/14/20 13:17 WBC RBC Hgb Hct MCV MCH MCHC RDW Plt Count Seg Neutrophils % Sodium 157.8 H Potassium 3.1 L Chloride 124 H Carbon Dioxide 28 Anion Gap 6 BUN 39 H Creatinine 0.94 Est GFR ( Amer) > 60 Glucose 138 H Calcium 9.4 Magnesium Total Bilirubin AST Alkaline Phosphatase Total Protein Albumin Urine Color Urine Appearance Urine pH Ur Specific [place] Urine Protein Urine Glucose (UA) Urine Ketones Urine Blood Urine Nitrite Ur Leukocyte Esterase Urine WBC (Auto) Urine RBC (Auto) Assessment and Plan - Diagnosis (1) Hypernatremia Is this a current diagnosis for this admission?: Yes Plan: Patient serum sodium is still markedly elevated. We will continue D5 half- normal saline and monitor electrolytes. Clinically there is been no improvement in the patient. (2) Dementia Qualifiers: Dementia type: vascular dementia Dementia behavioral disturbance: without behavioral disturbance Qualified Code(s): F01.50 - Vascular dementia without behavioral disturbance Is this a current diagnosis for this admission?: Yes Plan: History of stroke. Patient is a permanent resident at [facility]. Baseline is unknown to this provider but she is nonverbal during this interaction. Continue supportive care. (3) Thrombocytopenia Is this a current diagnosis for this admission?: Yes Plan: Platelet count is slightly low. It was 116. No evidence of bleeding. Just monitor at this time. (4) Hypokalemia Is this a current diagnosis for this admission?: Yes Plan: Potassium is low. Likely related to the hydration. Potassium chloride to the D5 half-normal saline and monitor potassium levels. (5) UTI (urinary tract infection) Qualifiers: Urinary tract infection type: acute cystitis Hematuria presence: without hematuria Qualified Code(s): N30.00 - Acute cystitis without hematuria Is this a current diagnosis for this admission?: Yes Plan: Unfortunately urine culture was not obtained. No antibiotics at this time. We will continue to monitor. (6) History of CVA (cerebrovascular accident) Is this a current diagnosis for this admission?: Yes Plan: Many late effects of the stroke with devastating consequences. - Plan Summary Summary: Several attempts have been made to contact the patient's daughter Jojo. And no discharge planning has also been trying. The patient's prognosis is extremely poor and even grave realistically. We will continue current treatment plan. As soon as I can talk to the patient's daughter we will discuss other options including a comfort oriented treatment plan. - Time Time Spent with patient: 15-24 minutes Medications reviewed and adjusted accordingly: Yes Anticipated Discharge Disposition: Comfort care versus returning to SNF on hospice Anticipated Discharge Timeframe: Unknown at this time
[2020-07-14] MEDS ORDERED: DEXTROSE 5%-WATER 1000 ML 1,000 ML with POTASSIUM CHLORIDE 20 MEQ IV PRN ×4 (17:38→23:39)
[2020-07-14 19:17] LABS: ANION GAP 10 (5-19); BLOOD UREA NITROGEN 36 mg/dL (7-20); CALCIUM 9.7 mg/dL (8.4-10.2); CARBON DIOXIDE 25 mmol/L (22-30); CHLORIDE 120 mmol/L (98-107); GLUCOSE 169 mg/dL (75-110)
[2020-07-14] MEDS: ATORVASTATIN CALCIUM 40 MG TABLET PO SCH (23:44)
[2020-07-14] MEDS ORDERED: DEXTROSE 5%-WATER 1000 ML 1,000 ML with POTASSIUM CHLORIDE 20 MEQ IV ONE ×2 (23:45)
[2020-07-14] MEDS: MIRTAZAPINE 15 MG TABLET PO SCH (23:45)
[2020-07-14] MEDS ORDERED: POTASSIUM CHLORIDE 20 MEQ/50 ML RTU IV ONE (23:45)
[2020-07-15] MEDS ORDERED: DEXTROSE 5%-WATER 1000 ML 1,000 ML IV PRN (01:00)
[2020-07-15] MEDS: HEPARIN SOD (PORCINE) 5,000 UNIT/ML 1 ML VIAL SUBCUT SCH ×3 (05:22→21:15)
[2020-07-15] MEDS: LOSARTAN POTASSIUM 25 MG TABLET PO SCH (09:54)
[2020-07-15] MEDS: DOCUSATE SODIUM 100 MG CAPSULE PO SCH (09:54)
[2020-07-15] MEDS: MULTIVITAMIN TABLET PO SCH (09:55)
[2020-07-15] MEDS: FAMOTIDINE 20 MG TABLET PO SCH ×2 (09:55→21:15)
[2020-07-15] MEDS: CHOLECALCIFEROL (D3) 1,000 UNIT (25 MCG) TABLET PO SCH (09:55)
[2020-07-15] MEDS: ASPIRIN 81 MG TABLET, ENT COATED PO SCH (09:55)
[2020-07-15 10:20] LABS: ANION GAP 9 (5-19); BLOOD UREA NITROGEN 29 mg/dL (7-20); CALCIUM 9.4 mg/dL (8.4-10.2); CARBON DIOXIDE 23 mmol/L (22-30); CHLORIDE 117 mmol/L (98-107); GLUCOSE 118 mg/dL (75-110); POTASSIUM 3.4 mmol/L (3.6-5.0)
[2020-07-15] MEDS ORDERED: PROMETHAZINE HCL INJ 25 MG/1 ML VIAL IV PRN (14:30)
[2020-07-15] MEDS ORDERED: ONDANSETRON HCL INJ/PF 4 MG/2 ML SDV IV PRN (14:30)
[2020-07-15] MEDS: MORPHINE SULFATE 10 MG/ML INJ IV PRN ×2 (14:35→21:19)
--- NOTE | 2020-07-15 19:50 | PDOC PROGRESS REPORT ---
Subjective Progress Note for:: 07/15/20 Subjective:: The patient does have her eyes open but is not much better than yesterday. Unfortunately IV access is becoming tenuous. Reason For Visit: HYPERNATREMIA,DEHYDRATION Physical Exam Vital Signs: Temp Pulse Resp BP Pulse Ox 98.6 F 90 16 121/57 L 100 07/15/20 17:22 07/15/20 17:22 07/15/20 17:22 07/15/20 17:22 07/15/20 17:22 Intake & Output 07/14/20 07/15/20 07/16/20 06:59 06:59 06:59 Intake Total 1079 868 Output Total 100 150 100 Balance 979 718 -100 Weight 59.4 kg 62.6 kg General appearance: PRESENT: no acute distress, other - Opens her eyes. I believe she makes eye contact it is difficult to tell but there is no verbal interaction. She does not attempt to mouth any words. Ear exam: PRESENT: normal external ear exam. ABSENT: bleeding, drainage Mouth exam: PRESENT: dry mucosa Teeth exam: PRESENT: poor dentation Respiratory exam: PRESENT: clear to auscultation veronica - Anteriorly, symmetrical, unlabored, other - Shallow respirations as patient is unable to cooperate with a request to take a deep breath.. ABSENT: rales, rhonchi, tachypnea, wheezes Cardiovascular exam: PRESENT: RRR, +S1, +S2 Breast: PRESENT: Other - Still with enlargement of the right breast compared to the left GI/Abdominal exam: PRESENT: diminished bowel sounds, soft. ABSENT: tenderness Rectal exam: PRESENT: deferred Gentrourinary exam: PRESENT: indwelling catheter Neurological exam: PRESENT: awake, other - The patient is awake today. Unable to further assess with regard to orientation. Psychiatric exam: PRESENT: flat affect Results Laboratory Results: 07/14/20 03:59 07/15/20 09:23 07/15/20 09:23 Sodium 148.8 H Potassium 3.4 L Chloride 117 H Carbon Dioxide 23 Anion Gap 9 BUN 29 H Creatinine 0.91 Est GFR ( Amer) > 60 Glucose 118 H Calcium 9.4 07/13/20 20:07 Blood Blood Culture (PCR) - Final Assessment and Plan - Diagnosis (1) Hypernatremia Is this a current diagnosis for this admission?: Yes Plan: Still no significant improvement despite alterations in fluid. We will continue current fluids until I can touch base with her daughter as comfort care is the most appropriate treatment plan at this time. (2) Dementia Qualifiers: Dementia type: vascular dementia Dementia behavioral disturbance: without behavioral disturbance Qualified Code(s): F01.50 - Vascular dementia without behavioral disturbance Is this a current diagnosis for this admission?: Yes Plan: Late effect of stroke. Supportive care. (3) Thrombocytopenia Is this a current diagnosis for this admission?: Yes Plan: I have held off on redrawing CBCs at this time. No evidence of bleeding. (4) Hypokalemia Is this a current diagnosis for this admission?: Yes Plan: Despite potassium in the IV the patient is still hypokalemic. I will speak to pharmacy about increasing the potassium in her fluid. (5) UTI (urinary tract infection) Qualifiers: Urinary tract infection type: acute cystitis Hematuria presence: without hematuria Qualified Code(s): N30.00 - Acute cystitis without hematuria Is this a current diagnosis for this admission?: Yes Plan: No further antibiotic therapy (6) History of CVA (cerebrovascular accident) Is this a current diagnosis for this admission?: Yes Plan: Many late effects of the stroke with devastating consequences. - Plan Summary Summary: Several attempts have been made to contact the patient's daughter Jojo. And no discharge planning has also been trying. The patient's prognosis is extremely poor and even grave realistically. We will continue current treatment plan. As soon as I can talk to the patient's daughter we will discuss other options including a comfort oriented treatment plan. 07/15/2020 Prognosis remains extremely poor. We will keep trying to connect with the patient's daughter. I did leave a message at the nursing station to obtain a working phone number when the patient's daughter visits or calls to check on her. - Time Time Spent with patient: 15-24 minutes Medications reviewed and adjusted accordingly: Yes Anticipated Discharge Disposition: Comfort care here versus hospice at [facility] Anticipated Discharge Timeframe: Unknown
[2020-07-15] MEDS: ATORVASTATIN CALCIUM 40 MG TABLET PO SCH (21:15)
[2020-07-15] MEDS: MIRTAZAPINE 15 MG TABLET PO SCH (21:15)
[2020-07-15] MEDS: POTASSIUM CHLORIDE IV PRN ×2 (23:07)
[2020-07-15] MEDS: WATER IV PRN ×2 (23:07)
[2020-07-15] MEDS: DEXTROSE 10% IV PRN ×2 (23:07)
[2020-07-16] MEDS: HEPARIN SOD (PORCINE) 5,000 UNIT/ML 1 ML VIAL SUBCUT SCH ×2 (05:21→14:48)
[2020-07-16 06:55] LABS: BLOOD UREA NITROGEN 19 mg/dL (7-20); CALCIUM 8.6 mg/dL (8.4-10.2); GLUCOSE 143 mg/dL (75-110); POTASSIUM 3.2 mmol/L (3.6-5.0)
[2020-07-16] MEDS: MORPHINE SULFATE 10 MG/ML INJ IV PRN (06:57)
[2020-07-16 07:01] LABS: CARBON DIOXIDE 24 mmol/L (22-30); CHLORIDE 114 mmol/L (98-107)
[2020-07-16 07:03] LABS: ANION GAP 4 (5-19)
[2020-07-16] MEDS: DEXTROSE 10% IV PRN ×2 (09:15)
[2020-07-16] MEDS: WATER IV PRN ×2 (09:15)
[2020-07-16] MEDS: POTASSIUM CHLORIDE IV PRN ×2 (09:15)
[2020-07-16] MEDS: DOCUSATE SODIUM 100 MG CAPSULE PO SCH (09:21)
[2020-07-16] MEDS: LOSARTAN POTASSIUM 25 MG TABLET PO SCH (09:21)
[2020-07-16] MEDS: FAMOTIDINE 20 MG TABLET PO SCH (09:22)
[2020-07-16] MEDS: CHOLECALCIFEROL (D3) 1,000 UNIT (25 MCG) TABLET PO SCH (09:22)
[2020-07-16] MEDS: MULTIVITAMIN TABLET PO SCH (09:22)
[2020-07-16] MEDS: ASPIRIN 81 MG TABLET, ENT COATED PO SCH (09:22)
--- NOTE | 2020-07-16 13:31 | PDOC PROGRESS REPORT ---
Subjective Progress Note for:: 07/16/20 Subjective:: Patient is resting comfortably. Does not appear to be in any distress. Nonverbal this morning. Reason For Visit: HYPERNATREMIA,DEHYDRATION Physical Exam Vital Signs: Temp Pulse Resp BP Pulse Ox 98.4 F 84 16 104/49 L 99 07/16/20 10:00 07/16/20 08:00 07/16/20 08:00 07/16/20 08:00 07/16/20 08:00 Intake & Output 07/15/20 07/16/20 07/17/20 06:59 06:59 06:59 Intake Total 868 2000 Output Total 150 425 Balance 718 1575 Weight 62.6 kg 64.7 kg General appearance: PRESENT: no acute distress Head exam: PRESENT: atraumatic, normocephalic Mouth exam: PRESENT: dry mucosa, tongue midline Teeth exam: PRESENT: poor dentation Respiratory exam: PRESENT: clear to auscultation veronica - Anteriorly. Unable to take a deep breath on command., symmetrical, unlabored. ABSENT: rales, rhonchi, tachypnea, wheezes Cardiovascular exam: PRESENT: RRR, +S1, +S2. ABSENT: bradycardia, diastolic murmur, irregular rhythm, systolic murmur, tachycardia Breast: PRESENT: Other - Asymmetry with enlarged right breast. GI/Abdominal exam: PRESENT: normal bowel sounds, soft. ABSENT: distended, tenderness Rectal exam: PRESENT: deferred Extremities exam: ABSENT: pedal edema Neurological exam: PRESENT: motor sensory deficit - Left hemiplegia. Contracted left arm, other Results Laboratory Results: 07/14/20 03:59 07/16/20 06:12 07/16/20 06:12 Sodium 142.4 Potassium 3.2 L Chloride 114 H Carbon Dioxide 24 Anion Gap 4 L BUN 19 Creatinine 0.85 Est GFR ( Amer) > 60 Glucose 143 H Calcium 8.6 07/13/20 20:07 Blood Blood Culture (PCR) - Final Assessment and Plan - Diagnosis (1) Hypernatremia Is this a current diagnosis for this admission?: Yes Plan: The patient is now moving towards comfort measures. I spoke with her daughter Jojo. Meaningful recovery is extremely unlikely. We will ensure that the patient is comfortable. She was at [facility]. We will try and see if she can ret urn to [facility] on a hospice level treatment plan. (2) Dementia Qualifiers: Dementia type: vascular dementia Dementia behavioral disturbance: without behavioral disturbance Qualified Code(s): F01.50 - Vascular dementia without behavioral disturbance Is this a current diagnosis for this admission?: Yes Plan: Supportive care (3) Thrombocytopenia Is this a current diagnosis for this admission?: Yes Plan: No longer monitoring blood work (4) Hypokalemia Is this a current diagnosis for this admission?: Yes Plan: No supplements. No longer monitoring blood work. (5) UTI (urinary tract infection) Qualifiers: Urinary tract infection type: acute cystitis Hematuria presence: without hematuria Qualified Code(s): N30.00 - Acute cystitis without hematuria Is this a current diagnosis for this admission?: Yes Plan: Suspected based on urinalysis. Unfortunately culture was not obtained. At this point is irrelevant as the patient will be comfort measures only. (6) History of CVA (cerebrovascular accident) Is this a current diagnosis for this admission?: Yes Plan: Supportive care (7) Comfort measures only status Is this a current diagnosis for this admission?: Yes - Plan Summary Summary: Several attempts have been made to contact the patient's daughter Jojo. And no discharge planning has also been trying. The patient's prognosis is extremely poor and even grave realistically. We will continue current treatment plan. As soon as I can talk to the patient's daughter we will discuss other opt ions including a comfort oriented treatment plan. 07/15/2020 Prognosis remains extremely poor. We will keep trying to connect with the patient's daughter. I did leave a message at the nursing station to obtain a working phone number when the patient's daughter visits or calls to check on her. - Time Time Spent with patient: 15-24 minutes Medications reviewed and adjusted accordingly: Yes Anticipated Discharge Disposition: Longterm Care Facility - With hospice level care Anticipated Discharge Timeframe: when bed available
--- NOTE | 2020-07-16 13:37 | ADVANCED CARE ---
- Diagnosis (1) Hypernatremia Diagnosis Current: Yes (2) Dementia Diagnosis Current: Yes (3) Thrombocytopenia Diagnosis Current: Yes (4) Hypokalemia Diagnosis Current: Yes (5) UTI (urinary tract infection) Diagnosis Current: Yes (6) History of CVA (cerebrovascular accident) Diagnosis Current: Yes (7) Comfort measures only status Diagnosis Current: Yes Attendance: The discussion was held on the phone with the patient's daughter and son-in-law as they live in [place]. Due to the patient's cognitive status she is unable to participate in the conversation. Resuscitation Status: Comfort Measures Only Discussion: When the patient presented from [facility] half-way her serum sodium was 162. Despite receiving aggressive IV fluids her sodium has only slowly improved. It is very unlikely that she will have a meaningful recovery. For this reason we are transitioning to comfort measures only. The daughter and son-in-law live in [place]. The patient's mother is actually a resident at [facility]. She came from [facility]. For this reason they would like to see if she can go back to [facility] where people know her. We will discontinue all medications not related to comfort, anxiety or agitation. Care Planning Goals: Transition into comfort measures with eventual return to [facility] on a hospice level treatment plan Document(s) Completed: None Time Spent: 25 minutes
--- NOTE | 2020-07-16 15:10 | PDOC TRANSFER SUMMARY ---
Impression - Admit/DC Date/PCP Admission Date/Primary Care Provider: 07/13/20 20:18 BABAK PATTON MD Discharge Date: 07/16/20 - Discharge Diagnosis (1) Hypernatremia Is this a current diagnosis for this admission?: Yes (2) Dementia Is this a current diagnosis for this admission?: Yes (3) Thrombocytopenia Is this a current diagnosis for this admission?: Yes (4) Hypokalemia Is this a current diagnosis for this admission?: Yes (5) UTI (urinary tract infection) Is this a current diagnosis for this admission?: Yes (6) History of CVA (cerebrovascular accident) Is this a current diagnosis for this admission?: Yes (7) Comfort measures only status Is this a current diagnosis for this admission?: Yes - Assessment Summary: Several attempts have been made to contact the patient's daughter Jojo. And no discharge planning has also been trying. The patient's prognosis is extremely poor and even grave realistically. We will continue current treatment plan. As soon as I can talk to the patient's daughter we will discuss other options including a comfort oriented treatment plan. 07/15/2020 Prognosis remains extremely poor. We will keep trying to connect with the patient's daughter. I did leave a message at the nursing station to obtain a working phone number when the patient's daughter visits or calls to check on her. - Additional Information Resuscitation Status: Comfort Measures Only Discharge Diet: As Tolerated Discharge Activity: Bedrest Referrals: BABAK PATTON MD [Primary Care Provider] - Follow up as needed Prescriptions: Lorazepam [Lorazepam Intensol] 2 mg PO Q4H PRN #10 ml PRN Reason: Anxiety Morphine Sulfate 5 mg PO Q2H PRN #60 ml PRN Reason: For Pain Home Medications: Acetaminophen [Tylenol 325 mg Tablet] 325 mg PO Q4HP PRN tablet 07/16/20 Lorazepam [Lorazepam Intensol] 2 mg PO Q4H PRN #10 ml 07/16/20 Morphine Sulfate 5 mg PO Q2H PRN #60 ml 07/16/20 History of Present Illiness History of Present Illness: VALERI VILLASEÑOR is a 69 year old female who is a resident of half-way at [facility] with past medical history of dementia, CVA, who is nonverbal and her CODE STATUS is DNR sent to ED from [facility] when she was found to have low potassium on routine lab today and as per half-way was declining rapidly. Patient is awake and alert with left upper and lower extremity contractures and left neck contractures follows some command but unfortunately does not verbalize, as per half-way report patient is able to eat. Patient does not seem to be in any acute distress except for profound neurological symptoms and the fact that she is not verbal and does not provide any history. In ED she was found to be severely hypernatremic, with mild leukocyte esterase on UA. Hospital Course Hospital Course: The patient had an uneventful hospital course. Unfortunately she has not made a meaningful recovery. She remains nonverbal. She does not appear to be in any discomfort however with a poor prognosis for meaningful recovery her daughter Jojo has decided that comfort measures with hospice services would be most appropriate. I fully supported this decision. We were able to have a hospice service attend to the patient as she is going back to [facility]. Physical Exam Vital Signs: Temp Pulse Resp BP Pulse Ox 98.4 F 84 16 104/49 L 99 07/16/20 10:00 07/16/20 08:00 07/16/20 08:00 07/16/20 08:00 07/16/20 08:00 Intake & Output 07/15/20 07/16/20 07/17/20 06:59 06:59 06:59 Intake Total 868 2000 Output Total 150 425 Balance 718 1575 Weight 62.6 kg 64.7 kg General appearance: PRESENT: no acute distress Head exam: PRESENT: atraumatic, normocephalic Mouth exam: PRESENT: dry mucosa Respiratory exam: PRESENT: clear to auscultation veronica - Anteriorly, symmetrical, unlabored. ABSENT: rales, rhonchi, tachypnea, wheezes Cardiovascular exam: PRESENT: RRR, +S1, +S2. ABSENT: bradycardia, diastolic murmur, irregular rhythm, systolic murmur, tachycardia GI/Abdominal exam: PRESENT: hypoactive bowel sounds, soft. ABSENT: tenderness Neurological exam: PRESENT: awake, aphasic Results Laboratory Results: WBC 11.0 10^3/uL (4.0-10.5) H 07/14/20 03:59 RBC 3.81 10^6/uL (3.72-5.28) 07/14/20 03:59 Hgb 12.2 g/dL (12.0-15.5) 07/14/20 03:59 Hct 36.1 % (36.0-47.0) 07/14/20 03:59 MCV 95 fl (80-97) 07/14/20 03:59 MCH 31.9 pg (27.0-33.4) 07/14/20 03:59 MCHC 33.7 g/dL (32.0-36.0) 07/14/20 03:59 RDW 16.8 % (11.5-14.0) H 07/14/20 03:59 Plt Count 116 10^3/uL (150-450) L 07/14/20 03:59 Lymph % (Auto) 15.5 % (13-45) 07/14/20 03:59 [place] % (Auto) 10.7 % (3-13) 07/14/20 03:59 Eos % (Auto) 3.7 % (0-6) 07/14/20 03:59 Baso % (Auto) 0.7 % (0-2) 07/14/20 03:59 Absolute Neuts (auto) 7.6 10^3/uL (1.7-8.2) 07/14/20 03:59 Absolute Lymphs (auto) 1.7 10^3/uL (0.5-4.7) 07/14/20 03:59 Absolute Monos (auto) 1.2 10^3/uL (0.1-1.4) 07/14/20 03:59 Absolute Eos (auto) 0.4 10^3/uL (0.0-0.6) 07/14/20 03:59 Absolute Basos (auto) 0.1 10^3/uL (0.0-0.2) 07/14/20 03:59 Seg Neutrophils % 69.4 % (42-78) 07/14/20 03:59 Sodium 142.4 mmol/L (137-145) 07/16/20 06:12 Potassium 3.2 mmol/L (3.6-5.0) L 07/16/20 06:12 Chloride 114 mmol/L (98-107) H 07/16/20 06:12 Carbon Dioxide 24 mmol/L (22-30) 07/16/20 06:12 Anion Gap 4 (5-19) L 07/16/20 06:12 BUN 19 mg/dL (7-20) 07/16/20 06:12 Creatinine 0.85 mg/dL (0.52-1.25) 07/16/20 06:12 Est GFR ( Amer) > 60 (>60) 07/16/20 06:12 Est GFR (MDRD) Non-Af > 60 (>60) 07/16/20 06:12 Glucose 143 mg/dL (75-110) H 07/16/20 06:12 POC Glucose 94 mg/dL (70-110) 07/16/20 11:29 Calcium 8.6 mg/dL (8.4-10.2) 07/16/20 06:12 Magnesium 2.3 mg/dL (1.6-2.3) 07/14/20 03:59 Total Bilirubin 1.0 mg/dL (0.2-1.3) 07/14/20 03:59 Direct Bilirubin 0.4 mg/dL (0.0-0.4) 07/14/20 03:59 Neonat Total Bilirubin Not Reportable 07/14/20 03:59 Neonat Direct Bilirubin Not Reportable 07/14/20 03:59 Neonat Indirect Bili Not Reportable 07/14/20 03:59 AST 34 U/L (14-36) 07/14/20 03:59 ALT 41 U/L (<35) H 07/14/20 03:59 Alkaline Phosphatase 144 U/L (38-126) H 07/14/20 03:59 Total Protein 6.6 g/dL (6.3-8.2) 07/14/20 03:59 Albumin 3.3 g/dL (3.5-5.0) L 07/14/20 03:59 Urine Color MANJU 07/13/20 18:59 Urine Appearance SLIGHTLY-CLOUDY 07/13/20 18:59 Urine pH 5.0 (5.0-9.0) 07/13/20 18:59 Ur Specific [place] 1.030 07/13/20 18:59 Urine Protein 100 mg/dL (NEGATIVE) H 07/13/20 18:59 Urine Glucose (UA) NEGATIVE mg/dL (NEGATIVE) 07/13/20 18:59 Urine Ketones TRACE mg/dL (NEGATIVE) H 07/13/20 18:59 Urine Blood NEGATIVE (NEGATIVE) 07/13/20 18:59 Urine Nitrite NEGATIVE (NEGATIVE) 07/13/20 18:59 Urine Bilirubin SMALL (NEGATIVE) H 07/13/20 18:59 Urine Urobilinogen 4.0 mg/dL (<2.0) H 07/13/20 18:59 Ur Leukocyte Esterase SMALL (NEGATIVE) H 07/13/20 18:59 Urine WBC (Auto) 23 /HPF 07/13/20 18:59 Urine RBC (Auto) 4 /HPF 07/13/20 18:59 Urine Bacteria (Auto) TRACE /HPF 07/13/20 18:59 Urine Mucus (Auto) FEW /LPF 07/13/20 18:59 Urine Ascorbic Acid NEGATIVE (NEGATIVE) 07/13/20 18:59 Plan Plan of Treatment: Patient will be returning to [facility] facility. She will be however hospice services with a comfort only treatment plan. For this reason it would be most appropriate for her to remain at the facility as opposed to returning to the hospital for any changes in her condition. Goals: All efforts are to be focused on keeping the patient comfortable. Time Spent: Greater than 30 Minutes Stroke Is this a Stroke Patient?: No Acute Heart Failure - Is this a Heart Failure Patient?: No
[2020-07-16 15:23] VITALS: BP 112/52
== END 2020-07-16 16:31 | DRG 641 ==
LOC: ER 17:39 → EH 20:18 → OBSVTOIN 20:18 → 3W 07-14 00:35
PROVIDERS: ADMIT Internal Medicine; ATTEND Hospitalist
DX: E87.0 Hyperosmolality and hypernatremia (principal); N39.0 Urinary tract infection, site not specified; I69.354 Hemiplegia and hemiparesis following cerebral infarction affecting left non-dominant side; E87.6 Hypokalemia; M62.48 Contracture of muscle, other site; I69.398 Other sequelae of cerebral infarction; F01.50 Vascular dementia, unspecified severity, without behavioral disturbance, psychotic disturbance, mood disturbance, and anxiety; D69.59 Other secondary thrombocytopenia; E78.5 Hyperlipidemia, unspecified; Z66 Do not resuscitate; Z51.5 Encounter for palliative care; I25.2 Old myocardial infarction; Z79.82 Long term (current) use of aspirin; Z79.899 Other long term (current) drug therapy
CPT/HCPCS: 36415; 80048; 80053; 81001; 82962; 83735; 85025; 87040; 87070; 87077; 87086; 87088; 87150; 87186; 93005; 93010; 96361; 96365; 99285; J0696; J2270; J3480; J7040; J7060; J7120